=== PATIENT | female | born 2000 | race Caucasian/White ===

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

== ENCOUNTER 2021-08-14 00:14 | Emergency (ER) | payer OTHER ==
[~2021-08-14] VITALS: Ht 157.5 cm; Wt 54.9 kg
[2021-08-14 01:39] VITALS: BP 86/58
[2021-08-14] MEDS ORDERED: ONDANSETRON 4 MG ODT PO ONE (02:35)
[2021-08-14] MEDS ORDERED: DICYCLOMINE HCL LIQUID 20 MG, ALUMINUM HYD/MAG/SIMETHICONE 30 ML, LIDOCAINE VISCOUS 2% ... PO ONE ×3 (02:35)
[2021-08-14] MEDS ORDERED: ALUMINUM HYD/MAG/SIMETHICONE 30 ML UDC ONE (02:52)
[2021-08-14] MEDS ORDERED: DICYCLOMINE HCL LIQUID 10 MG/5 ML UDC ONE (02:52)
[2021-08-14 03:29] LABS: BASOPHILS % (AUTO) 0.5 % (0.0-2.0); EOSINOPHILS # (AUTO) 0.1 K/uL (0-0.4); EOSINOPHILS % (AUTO) 2.7 % (0.0-4.0); HEMATOCRIT 42.1 % (36-48); HEMOGLOBIN 14.7 g/dL (12.0-16.0); LYMPHOCYTES # (AUTO) 1.9 K/uL (2.5-16.5); LYMPHOCYTES % (AUTO) 41.6 % (20.5-51.1); MEAN CORPUSCULAR HEMOGLOBIN 32 pg (27-31); MEAN CORPUSCULAR HGB CONC 35 g/dL (33-37); MEAN CORPUSCULAR VOLUME 91.8 fL (80-94); MONOCYTES # (AUTO) 0.4 K/uL (0.8-1.0); MONOCYTES % (AUTO) 8.5 % (1.7-9.3); NEUTROPHILS # (AUTO) 2.2 K/uL (1.8-7.7); NEUTROPHILS % (AUTO) 46.7 % (42.2-75.2); PLATELET COUNT (AUTO) 269 K/uL (140-450); RED BLOOD CELL COUNT(AUTO) 4.59 MIL/uL (4.20-5.40); RED CELL DISTRIBUTION WIDTH 12.9 % (11.6-13.7); WHITE BLOOD COUNT (AUTO) 4.7 K/uL (4.5-11.0)
[2021-08-14 04:07] LABS: ALBUMIN 3.9 g/dL (3.4-5.0); ANION GAP 13.6 (8-16); CREATININE 0.6 mg/dL (0.6-1.3); POTASSIUM 3.6 mmol/L (3.5-5.1); TOTAL BILIRUBIN 0.4 mg/dL (0.0-1.0)
[2021-08-14] MEDS ORDERED: ONDA-188 SL (04:33)
[2021-08-14] MEDS ORDERED: FAMO-90 PO (04:33)
[2021-08-14 04:40] VITALS: BP 95/62
--- NOTE | 2021-08-14 04:40 | NUR ---
Patient discharged with v/s stable. Written and verbal after care instructions given and explained. Patient alert, oriented and verbalized understanding of instructions. Ambulatory with steady gait. All questions addressed prior to discharge. ID band removed. Patient advised to follow up with PMD. Rx of FAMOTADINE & ONDANSETRON given. Patient educated on indication of medication including possible reaction and side effects. Opportunity to ask questions provided and answered. VSS, A/OX4, STEADY GAIT, UNLOABORED BREATHING, CALM DEMEANOR.
== END 2021-08-14 04:40 | disposition home or self-care (01) ==
LOC: MED 00:14
DX: K29.70 Gastritis, unspecified, without bleeding (principal); G89.29 Other chronic pain; R10.9 Unspecified abdominal pain
CPT/HCPCS: 36415; 76705; 80053; 81002; 81025; 83690; 85025; 99284; Q0162

== ENCOUNTER 2022-02-22 22:26 | Emergency (ER) | payer OTHER ==
[~2022-02-22] VITALS: Ht 157.5 cm; Wt 56.7 kg
[~2022-02-22 22:26] MED LIST: FAMO-90 PO; ONDA-188 SL
[2022-02-22 22:38] VITALS: BP 126/59
[2022-02-22] MEDS ORDERED: CEPH-588 PO (23:49)
[2022-02-22 23:58] VITALS: BP 122/61
== END 2022-02-22 23:58 | disposition home or self-care (01) ==
LOC: MED 22:26
DX: L08.9 Local infection of the skin and subcutaneous tissue, unspecified (principal); Z79.899 Other long term (current) drug therapy
CPT/HCPCS: 99283

== ENCOUNTER 2022-08-05 06:07 | Emergency (ER) | payer OTHER ==
[~2022-08-05] VITALS: Ht 157.5 cm; Wt 61.7 kg
[~2022-08-05 06:07] MED LIST changes: +CEPH-588 PO
[2022-08-05 06:18] VITALS: BP 140/83
--- NOTE | 2022-08-05 06:20 | NUR ---
TO BED AMBULATORY
--- NOTE | 2022-08-05 06:29 | NUR ---
Patient taken to bed 8.
--- NOTE | 2022-08-05 06:30 | NUR ---
urine sample collected and sent to lab.
--- NOTE | 2022-08-05 07:16 | NUR ---
Transfer of care to Maximino VIVAS
--- NOTE | 2022-08-05 07:16 | NUR ---
Received report from SANGEETHA Carrasco. Assumed care at this time.
[2022-08-05 07:20] LABS: BARBITURATE, URINE NEGATIVE ng/ml (NEG <=200); BENZODIAZEPINE, URINE NEGATIVE ng/mL (NEG <=200); CANNABINOID, URINE POSITIVE ng/mL (NEG <=50); COCAINE, URINE POSITIVE ng/mL (NEG <=300); OPIATE, URINE NEGATIVE ng/mL (NEG <=2000); PHENCYCLIDINE SCREEN,URINE NEGATIVE ng/mL (NEG <=25)
--- NOTE | 2022-08-05 07:25 | NUR ---
Patient being evaluated by physician at bedside.
[2022-08-05] MEDS ORDERED: ONDANSETRON 4 MG/2 ML VIAL IVP ONE (07:30)
[2022-08-05] MEDS ORDERED: NACL 0.9% 1,000 ML IV ONE (07:30)
[2022-08-05] MEDS ORDERED: ONDA8TAB87 PO (08:19)
--- NOTE | 2022-08-05 08:30 | NUR ---
IV removed, catheter intact and site benign. Applied folded 4x4 gauze and tape to stop bleeding.
[2022-08-05 08:34] VITALS: BP 129/70
== END 2022-08-05 08:34 | disposition home or self-care (01) ==
LOC: MED 06:07
DX: F14.10 Cocaine abuse, uncomplicated (principal); F10.10 Alcohol abuse, uncomplicated; R11.2 Nausea with vomiting, unspecified; R41.0 Disorientation, unspecified; D64.9 Anemia, unspecified; F12.90 Cannabis use, unspecified, uncomplicated; Z79.899 Other long term (current) drug therapy
CPT/HCPCS: 80305; 81025; 96361; 96374; 99283; J2405

== ENCOUNTER 2023-03-18 10:45 | Emergency (ER) | payer OTHER ==
[~2023-03-18] VITALS: Ht 157.5 cm; Wt 58.1 kg
[~2023-03-18 10:45] MED LIST changes: +ONDA8TAB87 PO
[2023-03-18 10:55] VITALS: BP 128/81; PULSE 83; RESP 14; TEMP 98.6; O2SAT 96
[2023-03-18] MEDS ORDERED: LIDOCAINE 1% 500 MG/ 50 ML VIAL INJ ONE (11:05)
[2023-03-18] MEDS ORDERED: LIDOCAINE OINTMENT 5% 35 GM TUBE TP ONE (11:05)
[2023-03-18] MEDS ORDERED: LIDOCAINE 2% 100 MG/5 ML UJET TP ONE (11:43)
[2023-03-18] MEDS ORDERED: LIDOCAINE MPF 1% 5 ML ONE (11:55)
[2023-03-18 12:02] VITALS: O2SAT 96
[2023-03-18] MEDS ORDERED: BACITRACIN OINT 500 UNITS/GM PKT TP ONE (12:35)
[2023-03-18] MEDS ORDERED: BACI-418 TP (12:37)
[2023-03-18] MEDS ORDERED: IBUP-2213 PO (12:37)
== END 2023-03-18 12:51 | disposition home or self-care (01) ==
LOC: MED 10:45
DX: S61.300A Unspecified open wound of right index finger with damage to nail, initial encounter (principal); Z79.899 Other long term (current) drug therapy; W23.0XXA Caught, crushed, jammed, or pinched between moving objects, initial encounter; Y93.89 Activity, other specified; Y92.89 Other specified places as the place of occurrence of the external cause; Y99.8 Other external cause status
CPT/HCPCS: 11730; 99284; J2001

== ENCOUNTER 2023-06-15 23:37 | Emergency (ER) | payer OTHER ==
[~2023-06-15] VITALS: Ht 157.5 cm; Wt 58.5 kg
[~2023-06-15 23:37] MED LIST changes: +BACI-418 TP; +IBUP-2213 PO
[2023-06-16 00:01] VITALS: BP 121/88; PULSE 75; RESP 18; TEMP 97.9; O2SAT 100
[2023-06-16] MEDS ORDERED: NAPR-54 PO (03:16)
[2023-06-16] MEDS ORDERED: CEPH-588 PO (03:16)
== END 2023-06-16 03:19 | disposition home or self-care (01) ==
LOC: MED 23:37
DX: L08.9 Local infection of the skin and subcutaneous tissue, unspecified (principal); Z79.899 Other long term (current) drug therapy
CPT/HCPCS: 99283

== ENCOUNTER 2024-02-02 16:57 | Emergency (ER) | payer SELFPAY ==
[~2024-02-02 16:57] MED LIST changes: +NAPR-337 PO
== END 2024-02-02 17:29 | disposition left against medical advice (07) ==
LOC: MED 16:57
DX: R50.9 Fever, unspecified (principal)